=== PATIENT | male | born 1940 | race Caucasian/White ===

== ENCOUNTER 2024-12-02 06:44 | Day surgery (SDC) | payer MEDICARE, BC ==
[~2024-12-02] VITALS: Ht 188 cm; Wt 84.1 kg
[2024-12-02] VITALS (7 sets, daily range): BP systolic 120–144; BP diastolic 69–78; PULSE 72–84; RESP 8–14; TEMP 97.7; O2SAT 93–95
[~2024-12-02 06:44] MED LIST: DONE-46 PO; DULO30CA52 PO; FERR142T13 PO; FERR325T7 PO; LOSA1TAB41 PO; MEMA10TA22 PO; PANT40TA54 PO; RIVA10TA PO; ROSU10TA72 PO; ZOLP6.2547 PO
[2024-12-02] MEDS ORDERED: propofol 10mg/ml 20ml vial IV ONE (09:19)
[2024-12-02] MEDS ORDERED: fentaNYL/PF 50MCG/1 ML 2ML syringe ONE (09:25)
[2024-12-02] MEDS ORDERED: midazolam 1 mg/ML 2ml injection ONE (09:26)
== END 2024-12-02 10:37 | disposition home or self-care (01) ==
LOC: OR 06:44
PROVIDERS: ATTEND Internal Medicine Gastroenterology
DX: R10.13 Epigastric pain (principal); K31.89 Other diseases of stomach and duodenum; K22.70 Barrett's esophagus without dysplasia; R63.4 Abnormal weight loss; Z87.891 Personal history of nicotine dependence; I10 Essential (primary) hypertension; F03.90 Unspecified dementia, unspecified severity, without behavioral disturbance, psychotic disturbance, mood disturbance, and anxiety; Z88.8 Allergy status to other drugs, medicaments and biological substances; Z86.718 Personal history of other venous thrombosis and embolism
CPT/HCPCS: 43239; 88305; A4620; J2250; J2704; J3010; J7030; Z7512